=== PATIENT | female | born 1990 | race Hispanic/Latino ===

== ENCOUNTER 2016-12-05 20:37 | Emergency (ER) | payer SELFPAY ==
[~2016-12-05] VITALS: Ht 160 cm; Wt 77.4 kg
[2016-12-05 21:44] LABS: HEMATOCRIT 41.9 % (37.0-47.0); HEMOGLOBIN 14.7 g/dl (12.0-16.0); IMMATURE GRANULOCYTES 0.3 % (0.0-1.0); MEAN CELL VOLUME 90.5 fL CALC (80.0-100.0); MEAN CORPUSCULAR HGB 31.7 pG CALC (26.0-32.0); MEAN CORPUSCULAR HGB CONC 35.1 g/L CALC (32.0-36.0); NEUT# 3.39 thou/uL (2.00-7.15); RED BLOOD COUNT 4.63 mill/uL (4.20-5.60); RED CELL DISTRI WIDTH 11.6 % (11.5-15.5)
[2016-12-05 21:45] LABS: URINE BILIRUBIN - DIPSTICK NEGATIVE (NEGATIVE); URINE BLOOD DIPSTICK NEGATIVE (NEGATIVE); URINE CLARITY CLEAR; URINE COLOR YELLOW; URINE GLUCOSE - DIPSTICK NEGATIVE (NEGATIVE); URINE KETONE NEGATIVE (NEGATIVE); URINE LEUK ESTERASE NEGATIVE (NEGATIVE); URINE NITRITE - DIPSTICK NEGATIVE (Negative); URINE PROTEIN - DIPSTICK NEGATIVE (NEG-TRACE)
[2016-12-05 21:50] LABS: ALBUMIN 4.8 g/dL (3.2-5.0); ALKALINE PHOSPHATASE 76 u/l (38-126); AMYLASE 60 u/l (30-110); ANION GAP 19 (6-22 (CALC)); BILIRUBIN, TOTAL 0.6 mg/dL (0.0-1.4); BUN 10 mg/dL (7-17); BUN/CREATININE RATIO 15 (12-20 (CALC)); CALCIUM 9.7 mg/dL (8.4-10.2); CARBON DIOXIDE 25 mmol/l (22-30); CHLORIDE 104 mmol/l (95-108); CREATININE 0.7 mg/dL (0.5-1.0); GFR > 60 ML/MIN (>=60 (CALC)); GFR FOR AFR.AMER. > 60 ML/MIN (>=60 (CALC)); GLUCOSE 109 mg/dL (65-105); LIPASE 94 u/l (23-300); POTASSIUM 3.5 mmol/l (3.5-5.1); SGOT/AST 17 u/l (14-36); SGPT/ALT 24 u/l (9-52); SODIUM 143 mmol/l (137-146); TOTAL PROTEIN 8.4 g/dL (6.3-8.2)
[2016-12-06 00:05] VITALS: BP 115/67
== END 2016-12-06 00:11 | disposition home or self-care (01) | DRG 761 ==
LOC: ED 20:37
PROVIDERS: Emergency Medicine
DX: N39.3 Stress incontinence (female) (male) (principal); R10.32 Left lower quadrant pain; N94.10 Unspecified dyspareunia

== ENCOUNTER 2018-04-25 21:22 | Emergency (ER) | payer SELFPAY ==
[~2018-04-25] VITALS: Ht 160 cm; Wt 83.6 kg
[2018-04-25 22:39] LABS: URINE BILIRUBIN - DIPSTICK NEGATIVE (NEGATIVE); URINE BLOOD DIPSTICK NEGATIVE (NEGATIVE); URINE COLOR YELLOW; URINE GLUCOSE - DIPSTICK NEGATIVE (NEGATIVE); URINE KETONE NEGATIVE (NEGATIVE); URINE NITRITE - DIPSTICK NEGATIVE (Negative); URINE PROTEIN - DIPSTICK NEGATIVE (NEG-TRACE); URINE SPECIFIC GRAVITY 1.015
[2018-04-25] MEDS ORDERED: MECLIZINE25 MG PO (22:40)
[2018-04-25] MEDS ORDERED: ACCUPRIL5 MG PO (22:40)
[2018-04-25 22:41] LABS: URINE CLARITY TURBID
[2018-04-25 22:42] LABS: URINE LEUK ESTERASE SMALL (NEGATIVE)
[2018-04-25 22:46] LABS: URINE AMORPH SEDIMENT MANY hpf (NONE-FEW); URINE BACTERIA FEW hpf; URINE MUCUS FEW hpf (NONE-FEW); URINE RBC 0-2 RBC/hpf (0-5); URINE SQUAMOUS EPITHELIAL CELL MANY EPI/hpf (0-FEW)
[2018-04-25 22:55] LABS: HEMATOCRIT 39.3 % (37.0-47.0); HEMOGLOBIN 13.7 g/dl (12.0-16.0); IMMATURE GRANULOCYTES 0.1 % (0.0-5.0); MEAN CELL VOLUME 90.8 fL CALC (80.0-100.0); MEAN CORPUSCULAR HGB 31.6 pG CALC (26.0-32.0); MEAN CORPUSCULAR HGB CONC 34.9 g/L CALC (32.0-36.0); NEUT# 3.16 thou/uL (2.00-7.15); RED BLOOD COUNT 4.33 mill/uL (4.20-5.60); RED CELL DISTRI WIDTH 11.7 % (11.5-15.5)
[2018-04-25 23:03] LABS: ALBUMIN 4.1 g/dL (3.2-5.0); ALKALINE PHOSPHATASE 65 u/l (38-126); ANION GAP 13 (6-22 (CALC)); BILIRUBIN, TOTAL 0.5 mg/dL (0.0-1.4); BUN 14 mg/dL (7-17); BUN/CREATININE RATIO 25 (12-20 (CALC)); CARBON DIOXIDE 26 mmol/l (22-30); CHLORIDE 106 mmol/l (95-108); CREATININE 0.6 mg/dL (0.5-1.0); GFR > 60 ML/MIN (>=60 (CALC)); GFR FOR AFR.AMER. > 60 ML/MIN (>=60 (CALC)); POTASSIUM 3.7 mmol/l (3.5-5.1); SGOT/AST 20 u/l (14-36); SGPT/ALT 27 u/l (9-52); SODIUM 142 mmol/l (137-146); TOTAL PROTEIN 7.1 g/dL (6.3-8.2)
[2018-04-25 23:15] LABS: MYOGLOBIN 17 ng/mL (0 - 62)
[2018-04-25] MEDS ORDERED: CIPROFLOXACN500 MG PO (23:22)
[2018-04-26 01:31] VITALS: BP 120/78
== END 2018-04-26 01:33 | disposition home or self-care (01) | DRG 690 ==
LOC: ED 21:22
PROVIDERS: Emergency Medicine
DX: N39.0 Urinary tract infection, site not specified (principal); R00.2 Palpitations

== ENCOUNTER 2019-08-09 | Emergency (ER) | payer SELFPAY ==
[~2019-08-09] MED LIST: ACCUPRIL5 MG PO; CIPROFLOXACN500 MG PO; MECLIZINE25 MG PO
[2019-08-09 11:33] LABS: HEMATOCRIT 37.4 % (37.0-47.0); HEMOGLOBIN 12.8 g/dl (12.0-16.0); IMMATURE GRANULOCYTES 0.4 % (0.0-5.0); MEAN CELL VOLUME 90.8 fL CALC (80.0-100.0); MEAN CORPUSCULAR HGB 31.1 pG CALC (26.0-32.0); MEAN CORPUSCULAR HGB CONC 34.2 g/L CALC (32.0-36.0); NEUT# 2.06 thou/uL (2.00-7.15); RED BLOOD COUNT 4.12 mill/uL (4.20-5.60); RED CELL DISTRI WIDTH 11.6 % (11.5-15.5)
[2019-08-09 11:40] LABS: URINE BILIRUBIN - DIPSTICK NEGATIVE (NEGATIVE); URINE BLOOD DIPSTICK LARGE (NEGATIVE); URINE COLOR YELLOW; URINE GLUCOSE - DIPSTICK NEGATIVE (NEGATIVE); URINE KETONE NEGATIVE (NEGATIVE); URINE LEUK ESTERASE NEGATIVE (NEGATIVE); URINE NITRITE - DIPSTICK NEGATIVE (Negative); URINE PROTEIN - DIPSTICK TRACE mg/dL (NEG-TRACE); URINE UROBILINOGEN - DIPSTICK 0.2 E.U./dL (0.2)
[2019-08-09 11:44] LABS: ALBUMIN 4.2 g/dL (3.2-5.0); ALKALINE PHOSPHATASE 55 u/l (38-126); ANION GAP 14 (6-22 (CALC)); BILIRUBIN, TOTAL 0.6 mg/dL (0.0-1.4); BUN 11 mg/dL (7-17); BUN/CREATININE RATIO 20 (12-20 (CALC)); CARBON DIOXIDE 25 mmol/l (22-30); CHLORIDE 102 mmol/l (95-108); CREATININE 0.5 mg/dL (0.5-1.0); GFR > 60 ML/MIN (>=60 (CALC)); GFR FOR AFR.AMER. > 60 ML/MIN (>=60 (CALC)); LIPASE 76 u/l (23-300); POTASSIUM 3.6 mmol/l (3.5-5.1); SGOT/AST 20 u/l (14-36); SODIUM 137 mmol/l (137-146); TOTAL PROTEIN 7.5 g/dL (6.3-8.2)
[2019-08-09 11:45] LABS: URINE RBC 25-50 RBC/hpf (0-5)
[2019-08-09 11:46] LABS: URINE SQUAMOUS EPITHELIAL CELL FEW EPI/hpf (0-FEW)
[2019-08-09] MEDS ORDERED: KEFLEX500 M1 PO (13:26)
[2019-08-09] MEDS ORDERED: ZOFRAN4 MG/TAB PO (13:26)
[2019-08-09] MEDS ORDERED: ZITHROMAX500 MG PO (13:26)
== END 2019-08-09 14:33 | disposition home or self-care (01) | DRG 760 ==
DX: N83.202 Unspecified ovarian cyst, left side (principal); J18.9 Pneumonia, unspecified organism; R11.2 Nausea with vomiting, unspecified
CPT/HCPCS: Q9967

== ENCOUNTER 2019-08-11 | Emergency (ER) | payer SELFPAY ==
[~2019-08-11] MED LIST changes: +KEFLEX500 M1 PO; +ZITHROMAX500 MG PO; +ZOFRAN4 MG/TAB PO
[2019-08-11] MEDS ORDERED: TAM75CAP PO (13:39)
[2019-08-11] MEDS ORDERED: TESSALON PER100 MG PO (13:39)
== END 2019-08-11 14:08 | disposition home or self-care (01) | DRG 153 ==
DX: J11.1 Influenza due to unidentified influenza virus with other respiratory manifestations (principal)

== ENCOUNTER 2022-06-17 19:40 | Emergency (ER) | payer SELFPAY ==
[~2022-06-17] VITALS: Ht 160 cm; Wt 85.0 kg
[2022-06-17] VITALS (9 sets, daily range): BP systolic 102–127; BP diastolic 60–81
[~2022-06-17 19:40] MED LIST changes: +TAM75CAP PO; +TESSALON PER100 MG PO
[2022-06-17] MEDS ORDERED: METFORMIN500 M2 PO (20:27)
[2022-06-17] MEDS ORDERED: VOLTAREN75 MG PO (21:51)
== END 2022-06-17 22:08 | disposition home or self-care (01) | DRG 558 ==
LOC: ED 19:40
DX: M67.431 Ganglion, right wrist (principal); M77.8 Other enthesopathies, not elsewhere classified